=== PATIENT | female | born 1965 | race Hispanic/Latino ===

== ENCOUNTER 2016-06-06 10:28 | Emergency (ER) | payer BC ==
[2016-06-06 10:53] VITALS: BMI 23.1
[2016-06-06 10:56] VITALS: TEMP 98
[2016-06-06] MEDS ORDERED: Sodium Chloride 0.9% 1,000 ML IV SCH (11:30)
[2016-06-06 11:42] LABS: ADD MANUAL DIFF? NO
[2016-06-06 11:47] LABS: BASO # 0.02 K/mm3 (0.0-2.0); BASO % 0.5 % (0.0-3.0); EOS # 0.1 (0.0-0.7); EOS % 1.2 % (1.5-5.0); HEMATOCRIT 40.2 % (36.0-48.0); LYMPH # 1.3 (1.2-3.4); LYMPH % 29.3 % (22.0-35.0); MEAN CELL VOLUME 83.9 fL (80.0-105.0); MEAN CORPUSCULAR HEMOGLOBIN 29.6 pg (25.0-35.0); MEAN CORPUSCULAR HGB CONC 35.3 g/dl (31.0-37.0); MEAN PLATELET VOLUME 9.5 fl (7.0-11.0); MONO # 0.3 (0.1-0.6); PLATELET COUNT 280 10^3/uL (120.0-450.0); RED CELL DISTRIBUTION WIDTH 12.1 % (11.5-14.5); WHITE BLOOD COUNT 4.3 10^3/ul (4.5-11.0)
[2016-06-06 11:57] LABS: ALB/GLOB RATIO 1.3 (1.1-1.8); ALKALINE PHOSPHATASE 66 U/L (38-133); ALT/SGPT 41 U/L (7-56); AST/SGOT 33 U/L (15-39); BILIRUBIN,TOTAL 1.4 mg/dL (0.2-1.3); BLOOD UREA NITROGEN 19 mg/dL (7-21); CALCIUM 9.2 mg/dL (8.4-10.5); CARBON DIOXIDE 25 mmol/L (21-33); CHLORIDE 101 mmol/L (98-107); GFR AFRICAN-AMERICAN > 60; GLUCOSE,RANDOM 107 mg/dL (70-110); POTASSIUM 4.2 mmol/L (3.6-5.0); SODIUM 137 mmol/L (132-148); TOTAL PROTEIN 8.1 g/dL (5.8-8.3)
--- NOTE | 2016-06-06 12:00 | ED PDOC ---
Arrival/HPI - General Chief Complaint: Dizziness/Lightheaded Time Seen by Provider: 06/06/16 11:00 Historian: Patient - History of Present Illness Narrative History of Present Illness (Text): 06/06/16 11:15 A 51 year old female, who denies any significant past medical history, presents to the emergency department complaining of dizziness for the past 3 days. Dizziness is described as a sudden onset sensation of the room spinning, which is worse when turning her head. Patient reports similar episodes in the past. Patient took over the counter Dramamine, but it brought her no relief. Patient notes associated nausea, vomiting and a mild headache. Patient denies any fever , cough, congestion, or any other complaints. Patient is not a smoker, drinker or drug user. PMD: Dr. Street Time/Duration: Other (3 days) Symptom Onset: Sudden Symptom Course: Unchanged Quality: Other (room spinning sensation) Activities at Onset: Rest Modifying Factors (Text): worse with head turning and no relief with Dramamine Context: Home Associated Symptoms (Text): nausea, vomiting and a mild headache Past Medical History - Provider Review Nursing Documentation Reviewed: Yes - Travel History If Yes, travel location?: [place] - Cardiac Hx Cardiac Disorders: No - Pulmonary Hx Respiratory Disorders: No - Neurological Hx Neurological Disorder: Yes Hx Vertigo: Yes - HEENT Hx HEENT Disorder: No - Renal Hx Renal Disorder: No - Endocrine/Metabolic Hx Endocrine Disorders: No - Hematological/Oncological Hx Blood Disorders: No Hx AIDS: No - Integumentary Hx Dermatological Disorder: No - Musculoskeletal/Rheumatological Hx Musculoskeletal Disorders: No - Gastrointestinal Hx Gastrointestinal Disorders: No - Genitourinary/Gynecological Hx Genitourinary Disorders: No - Psychiatric Hx Psychophysiologic Disorder: Yes Hx Anxiety: Yes Hx Depression: No Hx Emotional Abuse: No Hx Physical Abuse: No Hx Substance Use: No - Surgical History Hx Section: Yes - Anesthesia Hx Anesthesia: Yes Hx Anesthesia Reactions: No Hx Malignant Hyperthermia: No - Suicidal Assessment Feels Threatened In Home Enviroment: No Family/Social History - Physician Review Nursing Documentation Reviewed: Yes Family/Social History: Unknown Family HX Smoking Status: Never Smoked Hx Alcohol Use: No Hx Substance Use: No Hx Substance Use Treatment: No Allergies/Home Meds Allergies/Adverse Reactions: Allergies No Known Allergies Allergy (Verified 06/06/16 10:53) Review of Systems - Physician Review All systems were reviewed & negative as marked: Yes - Review of Systems Constitutional: absent: Fevers ENT: absent: Sinus Congestion Respiratory: absent: Cough Gastrointestinal: Nausea, Vomiting Neurological: Headache, Dizziness Physical Exam Vital Signs Reviewed: Yes Vital Signs Temp Pulse Resp BP Pulse Ox 06/06/16 13:29 66 17 126/72 98 06/06/16 13:18 64 18 125/71 97 06/06/16 11:39 68 18 127/79 97 06/06/16 10:53 98 F 72 16 129/84 97 Temperature: Afebrile Blood Pressure: Normal Pulse: Regular Respiratory Rate: Normal Appearance: Positive for: Well-Appearing, Non-Toxic, Comfortable Pain Distress: None Mental Status: Positive for: Alert and Oriented X 3 Finger Stick Blood Glucose: 129 - Systems Exam Head: Present: Atraumatic, Normocephalic Pupils: Present: PERRL Extroacular Muscles: Present: Other (mild horizontal nystagmus) Conjunctiva: Present: Normal Mouth: Present: Moist Mucous Membranes Neck: Present: Normal Range of Motion Respiratory/Chest: Present: Clear to Auscultation, Good Air Exchange. No: Respiratory Distress, Accessory Muscle Use Cardiovascular: Present: Regular Rate and Rhythm, Normal S1, S2. No: Murmurs Abdomen: Present: Normal Bowel Sounds. No: Tenderness, Distention, Peritoneal Signs Back: Present: Normal Inspection Upper Extremity: Present: Normal Inspection. No: Cyanosis, Edema Lower Extremity: Present: Normal Inspection. No: Edema Neurological: Present: GCS=15, CN II-XII Intact, Speech Normal Skin: Present: Warm, Dry, Normal Color. No: Rashes Psychiatric: Present: Alert, Oriented x 3, Normal Insight, Normal Concentration Medical Decision Making ED Course and Treatment: 06/06/16 11:15 Impression: A 51 year old female with dizziness. Differential Diagnosis include but are not limited to: Vertigo Plan: -- EKG -- Labs -- Urinalysis -- Antivert, Zofran and IV Fluids -- Reassess and disposition Prior Visits: Notes and results from previous visits were reviewed. The patient last presented to the emergency department on 07/02/15 for evaluation of bilateral upper extremity numbness and tingling sensation. Progress Notes: EKG: Ordered, reviewed, and independently interpreted the EKG. Rate : 65 BPM Rhythm : NSR 06/06/16 12:13 Patient lab work is within normal limits. 06/06/16 13:02 On reevaluation, the patient states she feel much better, but still has some slight dizziness when turning her head. 06/06/16 13:29 On re-evaluation, the patient feels better and is in no acute distress. I have discussed the results and plan with the patient, who expresses understanding. Patient in agreement with plan to discharged home. Patient is stable for discharge. Patient was instructed to follow up with physician/clinic in 1-2 days or return if symptoms worsen or new concerning symptoms arise. - Lab Interpretations Lab Results: 06/06/16 11:30 06/06/16 11:30 Lab Results 06/06/16 11:30: WBC 4.3 L, RBC 4.79, Hgb 14.2, Hct 40.2, MCV 83.9, MCH 29.6, MCHC 35.3, RDW 12.1, Plt Count 280, MPV 9.5, Gran % 61.0, Lymph % (Auto) 29.3, [place] % (Auto) 8.0 H, Eos % (Auto) 1.2 L, Baso % (Auto) 0.5, Gran # 2.60, Lymph # 1.3, [place] # 0.3, Eos # 0.1, Baso # 0.02, Sodium 137, Potassium 4.2, Chloride 101, Carbon Dioxide 25, Anion Gap 15, BUN 19, Creatinine 0.6, Est GFR ( Amer) > 60, Est GFR (Non-Af Amer) > 60, Random Glucose 107, Calcium 9.2, Total Bilirubin 1.4 H, AST 33, ALT 41, Alkaline Phosphatase 66, Total Protein 8.1, Albumin 4.6, Globulin 3.6, Albumin/Globulin Ratio 1.3 I have reviewed the lab results: Yes - Medication Orders Current Medication Orders: Discontinued Medications Sodium Chloride (Sodium Chloride 0.9%) 1,000 mls @ 200 mls/hr IV .Q5H GABBIE Last Admin: 06/06/16 11:44 Dose: 200 MLS/HR eMAR Start Stop Document 06/06/16 11:44 SF (Rec: 06/06/16 11:44 SF [email or web address] Intravenous Solution Start Date 06/06/16 Start Time 11:44 End Date 06/06/16 Meclizine HCl (Antivert) 50 mg PO STAT STA Stop: 06/06/16 11:28 Last Admin: 06/06/16 11:43 Dose: 50 MG Ondansetron HCl (Zofran Inj) 4 mg IV ONCE ONE Stop: 06/06/16 11:28 Last Admin: 06/06/16 11:44 Dose: 4 MG eMAR Start Stop Document 06/06/16 11:44 SF (Rec: 06/06/16 11:44 SF [id number] Intravenous Solution Start Date 06/06/16 Start Time 11:44 - Scribe Statement The provider has reviewed the documentation as recorded by the Scribe Polina Lee Provider Scribe Attestation: All medical record entries made by the Scribe were at my direction and personally dictated by me. I have reviewed the chart and agree that the record accurately reflects my personal performance of the history, physical exam, medical decision making, and the department course for this patient. I have also personally directed, reviewed, and agree with the discharge instructions and disposition. Disposition/Present on Arrival - Present on Arrival Any Indicators Present on Arrival: No History of DVT/PE: No History of Uncontrolled Diabetes: No Urinary Catheter: No History of Decub. Ulcer: No History Surgical Site Infection Following: None - Disposition Have Diagnosis and Disposition been Completed?: Yes Diagnosis: Vertigo Disposition: HOME/ ROUTINE Disposition Time: 13:00 Patient Plan: Discharge Condition: IMPROVED Discharge Instructions (ExitCare): Vertigo (ED) Additional Instructions: follow up with ENT as instructed. return to the ED with any worsening or concerning symptoms. Prescriptions: Meclizine [Meclizine*] 25 mg PO Q6 PRN #10 tab PRN Reason: Dizziness Referrals: Lefty Street MD [Primary Care Provider] - Follow up with primary Raghu Jha DO [Staff Provider] - Follow up with primary
[2016-06-06 13:31] VITALS: BP 126/72; PULSE 66; RESP 17; O2SAT 98
--- NOTE | 2016-06-06 15:20 | CARD ---
APPROVED REPORT EKG Measurement Heart [id number] <Conclusion> Normal sinus rhythm Possible Inferior infarct, age undetermined Abnormal ECG
== END 2016-06-06 13:31 | disposition home or self-care (01) ==
LOC: ED 10:28
DX: R42 Dizziness and giddiness (principal)
CPT/HCPCS: 80053; 82948; 85025; 87086; 93005; 96374; 99285; J2405; J7040

== ENCOUNTER 2018-04-15 08:32 | Outpatient (CLI) | payer BC | END 2018-04-15 08:33 | disposition home or self-care (01) | LOC: RAD 08:32 ==

== ENCOUNTER 2018-05-07 14:30 | Outpatient (CLI) | payer BC | END 2018-05-07 14:31 | disposition home or self-care (01) | LOC: RAD 14:30 ==